=== PATIENT | male | born 1995 | race Caucasian/White ===

== ENCOUNTER 2019-12-21 15:44 | Inpatient (IN) | payer OTHER ==
[2019-12-21 18:40] VITALS: BMI 25.7
--- NOTE | 2019-12-21 20:18 | HP ---
COWS - Scale Resting Pulse: 1= [place] 81-100 Sweatin=Flushed/Facial Moisture (Increased facial moisture) Restless Observation: 0= Sits Still Pupil Size: 2= Moderately Dilated (Pupils = 4 mm) Bone or Joint Aches: 1= Mild Discomfort (Back pain - states r/t withdrawal) Runny Nose/ Eye Tearin= Nasal Congestion GI Upset > 30mins: 2= Nausea/Diarrhea (nausea only) Tremor Observation: 2= Slight Tremor Visible Yawning Observation: 1= 1-2x During Session Anxiety or Irritability: 1=Feels Anxious/Irritable Goose Flesh Skin: 0=Smooth Skin COWS Score: 13 CIWA Score - Admission Criteria OAS Guidelines: Admission for Medically Managed Detox: Requires at least one of the followin. CIWA greater than 12 2. Seizures within the past 24 hours 3. Delirium tremens within the past 24 hours 4. Hallucinations within the past 24 hours 5. Acute intervention needed for co occurring medical disorder 6. Acute intervention needed for co occurring psychiatric disorder 7. Severe withdrawal that cannot be handled at a lower level of care (continued vomiting, continued diarrhea, abnormal vital signs) requiring intravenous medication and/or fluids 8. Admitting History and Physical - Smoking History Smoking history: Current every day smoker Have you smoked in the past 12 months: Yes Aproximately how many cigarettes per day: 20 Admission ROS [facility] - [facility] Chief Complaint: "States here to detox from heroin so I can get my life back." Allergies/Adverse Reactions: Allergies Allergy/AdvReac Type Severity Reaction Status Date / Time Penicillins Allergy Verified 12/21/19 18:35 History of Present Illness: First [facility] admission for this 24 yo who presents with opioid withdrawal. Patient states has no prior detox attempts. JB: 0.0 UTox:+ MAITE/THC/FEN/MOP/MTD Hx 7 overdoses, Last 2 yrs ago. Denies seizures/blackouts Heroin/Opioid use began at age 19. Currently uses 10-15 bags/day/IV. Denies sharing needles or works. States last used yesterday @ 10 pm. Denies methadone program/use/ - but says did drink something yesterday. Does not have a Narcan kit @ home and encouraged. Cocaine/crack use began at age 19. Currently uses 1 bag/day. Smokes Marijuana use began at age 12. Currently uses 1x/wk. Nicotine use began at age 12. 1PPD Denies alcohol use. PMHx: Denies significant MHHx: Denies depression. Denies thoughts of harming self or others. SHx: Domiciled. Unemployed. Denies legal issues. Search Terms: Nas Carlos, 1995 Search Date: 12/21/2019 20:14:08 PM The Drug Utilization Report below displays all of the controlled substance prescriptions, if any, that your patient has filled in the last twelve months. The information displayed on this report is compiled from pharmacy submissions to the Department, and accurately reflects the information as submitted by the pharmacies. This report was requested by: Quita Mar | Reference #: [id number] There are no results for the search terms that you entered. Exam Limitations: No Limitations - Ebola screening Have you traveled outside of the country in the last 21 days: No (Denies known COVID exposure) Have you had contact with anyone from an Ebola affected area: No Have you been sick,other than usual withdrawal symptoms: No Do you have a fever: No - Review of Systems Constitutional: Chills, Diaphoresis, Changes in sleep (Difficulty falling asleep), Unintentional Wgt. Loss EENT: reports: Nose Congestion Respiratory: reports: No Symptoms reported Cardiac: reports: No Symptoms Reported GI: reports: Nausea, Abdominal cramping : reports: No Symptoms Reported Musculoskeletal: reports: Back Pain (r/t withdrawal) Integumentary: reports: No Symptoms Reported Neuro: reports: Headache (Achy headache "6". unrelated to injury), Tremors Endocrine: reports: No Symptoms Reported Hematology: reports: No Symptoms Reported Psychiatric: reports: Judgement Intact, Mood/Affect Appropiate, Anxious, other (Oriented x 2.) Patient History - Patient Medical History Hx Asthma: No Hx Chronic Obstructive Pulmonary Disease (COPD): No Hx Cardiac Disorders: No Hx Hypertension: No Hx Seizures: No Hx Diabetes: No Hx Gastrointestinal Disorders: No Hx Genitourinary Disorders: No Hx Sexually Transmitted Disorders: No Hx Renal Disease (ESRD): No Hx Depression: No Hx Suicide Attempt: No Hx Schizophrenia: No - Patient Surgical History Past Surgical History: No Hx Neurologic Surgery: No Hx Cataract Extraction: No Hx Cardiac Surgery: No Hx Lung Surgery: No Hx Breast Surgery: No Hx Breast Biopsy: No Hx Abdominal Surgery: No Hx Appendectomy: No Hx Cholecystectomy: No Hx Genitourinary Surgery: No Hx Section: No Hx Orthopedic Surgery: No Anesthesia Reaction: No - PPD History Previous Implant?: Yes Documented Results: Negative w/o proof Implanted On Prior [facility] Admission?: No PPD to be Administered?: Yes - Smoking Cessation Smoking history: Current every day smoker Have you smoked in the past 12 months: Yes Aproximately how many cigarettes per day: 20 Hx Chewing Tobacco Use: No Initiated information on smoking cessation: Yes 'Breaking Loose' booklet given: 12/21/19 - Substance & Tx. History Hx Alcohol Use: No Hx Substance Use: Yes Substance Use Type: Cocaine, Heroin, Marijuana, Opiates Hx Substance Use Treatment: No (Denies prior detox or rehab) - Substances abused Heroin Substance route: Injection Frequency: Daily Amount used: 15 bags Age of first use: 19 Date of last use: 12/20/19 Crack Substance route: Smoking Frequency: Daily Amount used: 1 bag Age of first use: 22 Date of last use: 12/20/19 Marijuana/Hashish Substance route: Smoking Frequency: Daily Amount used: 1 blunt Age of first use: 12 Date of last use: 12/20/19 Admission Physical Exam BHS - Vital Signs Vital Signs: Vital Signs - 24 hr 12/21/19 18:35 Temperature 97.6 F Pulse Rate 84 Respiratory 20 Rate Blood Pressure 117/66 - Physical General Appearance: Yes: Nourished, Mild Distress, Tremorous, Sweating (Increased facial moisture), Anxious HEENTM: Yes: EOMI, Hearing grossly Normal, Normocephalic, Normal Voice, SAVAGE (Pupils = 4 mm), Pharynx Normal Respiratory: Yes: Lungs Clear (Pulse ox = 99), Normal Breath Sounds, No Respiratory Distress Neck: Yes: No masses,lesions,Nodules, Supple Breast: Yes: Breast Exam Deferred Cardiology: Yes: Regular Rhythm, Regular Rate, S1, S2 Abdominal: Yes: Non Tender, Flat, Soft, Increased Bowel Sounds Genitourinary: Yes: Within Normal Limits Back: Yes: Normal Inspection Musculoskeletal: Yes: full range of Motion, Gait Steady Extremities: Yes: Normal Capillary Refill, Tremors (Mild tremors of hands) Neurological: Yes: kiln hand II-XII NML intact, Fully Oriented, Alert, Motor Strength 5/5, Normal Mood/Affect, Normal Response Integumentary: Yes: Normal Color, Warm, Moist (Increased facial moisture), Track Wilburn (Old and new antecubital track wilburn w/o increased warmth or erythema.), Other (Thickened, dry calloused skin on both small toes. (L) tender to touch.) Lymphatic: Yes: Within Normal Limits - Diagnostic (1) Opioid dependence with withdrawal Current Visit: Yes Status: Acute (2) Cocaine dependence Current Visit: Yes Status: Chronic Qualifiers: Substance use status: uncomplicated Qualified Code(s): F14.20 - Cocaine dependence, uncomplicated (3) Nicotine dependence, unspecified, uncomplicated Current Visit: Yes Status: Chronic Qualifiers: Nicotine product type: cigarettes Qualified Code(s): F17.210 - Nicotine dependence, cigarettes, uncomplicated (4) Cannabis abuse, uncomplicated Current Visit: Yes Status: Chronic (5) Intravenous drug abuse Current Visit: Yes Status: Chronic (6) Callus Current Visit: Yes Status: Chronic Cleared for Admission [facility] - Detox or Rehab [facility] Level of Care: Medically Managed Detox Regimen/Protocol: Methadone Claeared for Rehab Admission: No Breathalyzer - Breathalyzer Breathalyzer: 0 Urine Drug Screen - Test Device Lot number: [id number] Expiration date: 01/20/22 - Control Is test valid?: Yes - Results Drug screen NEGATIVE: No Urine drug screen results: THC-Marijuana, MAITE-Cocaine, FEN-Fentanyl, MOP- Opiates, MTD-Methadone Inpatient Rehab Admission - Rehab Decision to Admit Inpatient rehab admission?: No
[2019-12-21] MEDS ORDERED: METHADONE HCL 10 MG TABLET (FOR DETOX USE ONLY) PO ONE (21:54)
[2019-12-21] MEDS ORDERED: MENTHOL/PHENOL 1 EACH UD MM PRN (21:54)
[2019-12-21] MEDS ORDERED: hydrOXYzine PAMOATE 25 MG CAPSULE (FP) PO PRN (21:54)
[2019-12-21] MEDS ORDERED: ACETAMINOPHEN 325 MG TABLET (FP) PO PRN ×2 (21:54)
[2019-12-21] MEDS ORDERED: METHOCARBAMOL 500 MG TABLET PO PRN (21:54)
[2019-12-21] MEDS ORDERED: BISMUTH SUBSALICYLATE 524 MG/30 ML UD PO PRN (21:54)
[2019-12-21] MEDS ORDERED: MAGNESIUM CITRATE 300 ML BOTTLE PO PRN (21:54)
[2019-12-21] MEDS ORDERED: ONDANSETRON *ODT* 4 MG TABLET SL ONE (21:54)
[2019-12-21] MEDS ORDERED: MAG HYDROX/AL HYDROX/SIMETH 30 ML UNIT-DOSE CUP PO PRN (21:54)
[2019-12-21] MEDS ORDERED: cloNIDine HCL 0.1 MG TABLET PO PRN (21:54)
[2019-12-21] MEDS ORDERED: NICOTINE POLACRILEX 2 MG GUM BUC PRN (21:54)
[2019-12-21] MEDS ORDERED: MAGNESIUM HYDROX 2400MG/30ML ORAL SUSPENSION 30 ML CUP PO PRN (21:54)
[2019-12-21] MEDS: THIAMINE HCL 100 MG TABLET (FP) PO SCH (22:36)
[2019-12-21] MEDS: MELATONIN 5 MG TABLETS PO SCH (22:42)
[2019-12-22] MEDS ORDERED: METHADONE HCL 10 MG TABLET (FOR DETOX USE ONLY) ONE (09:20)
[2019-12-22] MEDS ORDERED: METHADONE HCL 5 MG TABLET (FOR DETOX USE ONLY) ONE (09:20)
[2019-12-22] MEDS ORDERED: METHADONE (DETOX) 20 MG, METHADONE (DETOX) 5 MG PO ONE (10:00)
[2019-12-22] MEDS: PRENATAL VITAMINS W/ FOLIC ACID TABLET (FP) PO SCH (10:26)
[2019-12-22] MEDS: NICOTINE 21 MG/24 HOURS TOPICAL PATCH TD SCH (10:26)
[2019-12-22 10:55] LABS: HEMATOCRIT 41.9 % (35.4-49); HEMOGLOBIN 13.8 GM/dL (11.7-16.9); MCH 28.6 pg (25.7-33.7); MEAN CELL VOLUME 86.8 fl (80-96); MEAN PLT VOLUME 8.1 fl (7.5-11.1); PLATELET COUNT 251 K/MM3 (134-434); RBC 4.83 M/mm3 (4.00-5.60); RDW 14.3 % (11.9-15.9); WHITE BLOOD COUNT 7.8 K/mm3 (4.0-10.0)
[2019-12-22 13:00] LABS: ALBUMIN 3.2 g/dl (3.4-5.0); BLOOD UREA NITROGEN 22.9 mg/dL (7-18); CALCIUM 8.6 mg/dL (8.5-10.1); POTASSIUM 4.4 mmol/L (3.5-5.1)
[2019-12-22 13:05] LABS: BILIRUBIN,TOTAL 0.2 mg/dL (0.2-1); CREATININE 0.9 mg/dL (0.55-1.3); TOT PROT 6.2 g/dl (6.4-8.2)
--- NOTE | 2019-12-22 16:25 | PN ---
BHS COWS - Scale Resting Pulse: 0= [place] 80 or Below Sweatin= Chills/Flushing Restless Observation: 1= Difficult to Sit Still Pupil Size: 0= Normal to Room Light Bone or Joint Aches: 0= None Runny Nose/ Eye Tearin= None GI Upset > 30mins: 2= Nausea/Diarrhea Tremor Observation of Outstretched Hands: 0= None Yawning Observation: 1= 1-2x During Session Anxiety or Irritability: 2=Irritable/Anxious Goose Flesh Skin: 3=Piloerection COWS Score: 10 BHS Progress Note (SOAP) Subjective: Restless, Anxious, Nausea, Sweating. Objective: Patient A & O X 3, Observed Ambulating on Detox Unit Unassisted. In No Acute Distress. 12/22/19 16:22 Vital Signs Temperature 96.6 F L 12/22/19 12:47 Pulse Rate 74 12/22/19 12:47 Respiratory Rate 17 12/22/19 12:47 Blood Pressure 123/60 12/22/19 12:47 O2 Sat by Pulse Oximetry (%) 95 12/22/19 12:47 Laboratory Tests 12/22/19 12/22/19 12/22/19 07:30 07:30 07:30 WBC 7.8 RBC 4.83 Hgb 13.8 Hct 41.9 MCV 86.8 MCH 28.6 MCHC 33.0 RDW 14.3 Plt Count 251 MPV 8.1 Sodium 138 Potassium 4.4 Chloride 108 H Carbon Dioxide 27 Anion Gap 4 L BUN 22.9 H Creatinine 0.9 Est GFR (CKD-EPI)AfAm 136.14 Est GFR (CKD-EPI)NonAf 117.46 Random Glucose 85 Calcium 8.6 Total Bilirubin 0.2 AST 12 L ALT 19 Alkaline Phosphatase 135 H Total Protein 6.2 L Albumin 3.2 L Syphilis Serology Non-reactive Lab Results noted. Assessment: 12/22/19 16:23 WITHDRAWAL SYMPTOMS. ELEVATED ALKALINE PHOSPHATASE LEVEL. 12/22/19 16:24 Plan: Continue Detox. Increase Daily Oral Water Intake.
[2019-12-22] MEDS: MELATONIN 5 MG TABLETS PO SCH (23:15)
[2019-12-22] MEDS: THIAMINE HCL 100 MG TABLET (FP) PO SCH (23:16)
[2019-12-23] MEDS: IBUPROFEN 400 MG TABLET (FP) PO PRN ×2 (05:55→14:38)
[2019-12-23] MEDS ORDERED: METHADONE HCL 10 MG TABLET (FOR DETOX USE ONLY) PO ONE (10:00)
[2019-12-23] MEDS: NICOTINE 21 MG/24 HOURS TOPICAL PATCH TD SCH (10:35)
[2019-12-23] MEDS: PRENATAL VITAMINS W/ FOLIC ACID TABLET (FP) PO SCH (10:35)
[2019-12-23] MEDS ORDERED: ONDANSETRON *ODT* 4 MG TABLET SL PRN (10:57)
--- NOTE | 2019-12-23 12:20 | PN ---
BHS COWS - Scale Resting Pulse: 0= [place] 80 or Below Sweatin= Chills/Flushing Restless Observation: 0= Sits Still Pupil Size: 0= Normal to Room Light Bone or Joint Aches: 2= Severe Diffuse Aches Runny Nose/ Eye Tearin= Nasal Congestion GI Upset > 30mins: 1= Stomach Cramp Tremor Observation of Outstretched Hands: 2= Slight Tremor Visible Yawning Observation: 0= None Anxiety or Irritability: 2=Irritable/Anxious Goose Flesh Skin: 0=Smooth Skin COWS Score: 9 BHS Progress Note (SOAP) Subjective: Nausea, nausea goes away after taking methadone Patient c/o toothache since admission and that motrin not helping Objective: 12/23/19 12:12 Last Vital Signs Temp Pulse Resp BP Pulse Ox 97.3 F L 77 17 129/70 97 12/23/19 08:55 12/23/19 08:55 12/23/19 08:55 12/23/19 08:55 12/23/19 08:55 Laboratory Tests 12/22/19 12/22/19 12/22/19 07:30 07:30 07:30 WBC 7.8 RBC 4.83 Hgb 13.8 Hct 41.9 MCV 86.8 MCH 28.6 MCHC 33.0 RDW 14.3 Plt Count 251 MPV 8.1 Sodium 138 Potassium 4.4 Chloride 108 H Carbon Dioxide 27 Anion Gap 4 L BUN 22.9 H Creatinine 0.9 Est GFR (CKD-EPI)AfAm 136.14 Est GFR (CKD-EPI)NonAf 117.46 Random Glucose 85 Calcium 8.6 Total Bilirubin 0.2 AST 12 L ALT 19 Alkaline Phosphatase 135 H Total Protein 6.2 L Albumin 3.2 L Syphilis Serology Non-reactive Labs reviewed: bun elevated, albumin/total protein low Assessment: 12/23/19 12:13 Withdrawal sxs Noted with azotemia, low total protein and albuminemia; c/o toothache since admission and that motrin not helping Plan: Continue detox Encourage PO water intake Nausea: zofran prn ordered Azotemia: encourage PO water hydration Low total protein and albuminemia: encourage diet Toothache: continue motrin/tylenol prn, start peridex rinse bid, start anbesol gel q6hr prn, follow up with your dentist post discharge
[2019-12-23] MEDS: CHLORHEXIDINE GLUCONATE 0.12% 15ML CUP MM SCH ×2 (12:48→22:06)
[2019-12-23] MEDS: BENZOCAINE 20 % GEL TUBE MM PRN (12:48)
[2019-12-23] MEDS: MELATONIN 5 MG TABLETS PO SCH (22:06)
[2019-12-23] MEDS: THIAMINE HCL 100 MG TABLET (FP) PO SCH (22:06)
[2019-12-24] MEDS ORDERED: METHADONE HCL 5 MG TABLET (FOR DETOX USE ONLY) ONE (09:11)
[2019-12-24] MEDS ORDERED: METHADONE HCL 10 MG TABLET (FOR DETOX USE ONLY) ONE (09:11)
[2019-12-24] MEDS ORDERED: METHADONE (DETOX) 10 MG, METHADONE (DETOX) 5 MG PO ONE (10:00)
--- NOTE | 2019-12-24 10:28 | EKG ---
Test Reason : Blood Pressure : / mmHG Vent. Rate : 080 BPM Atrial Rate : 080 BPM P-R Int : 152 ms QRS Dur : 088 ms QT Int : 418 ms P-R-T Axes : 064 073 066 degrees QTc Int : 482 ms NORMAL SINUS RHYTHM PROLONGED QT ABNORMAL ECG NO PREVIOUS ECGS AVAILABLE Confirmed by Nadia Price ([id number]) on 12/24/2019 10:27:41 AM Referred By: Confirmed By:Nadia Price
[2019-12-24] MEDS: PRENATAL VITAMINS W/ FOLIC ACID TABLET (FP) PO SCH (10:45)
[2019-12-24] MEDS: NICOTINE 21 MG/24 HOURS TOPICAL PATCH TD SCH (10:45)
[2019-12-24] MEDS: CHLORHEXIDINE GLUCONATE 0.12% 15ML CUP MM SCH ×2 (10:46→21:22)
[2019-12-24] MEDS: IBUPROFEN 400 MG TABLET (FP) PO PRN (10:47)
--- NOTE | 2019-12-24 10:57 | PN ---
S CIWA - CIWA Score Nausea/Vomitin Muscle Tremors: 2 Anxiety: 2 Agitation: 2 Paroxysmal Sweats: No Perspiration Orientation: 0-Oriented Tacttile Disturbances: 1-Very Mild Itch/Numbness Auditory Disturbances: 0-None Visual Disturbances: 0-None Headache: 1-Very Mild CIWA-Ar Total Score: 10 BHS COWS - Scale Resting Pulse: 0= [place] 80 or Below Sweatin= No chills or Flushing Restless Observation: 0= Sits Still Pupil Size: 1= Pupils >than Normal Bone or Joint Aches: 1= Mild Discomfort Runny Nose/ Eye Tearin= Nasal Congestion GI Upset > 30mins: 1= Stomach Cramp Tremor Observation of Outstretched Hands: 2= Slight Tremor Visible Yawning Observation: 0= None Anxiety or Irritability: 2=Irritable/Anxious Goose Flesh Skin: 0=Smooth Skin COWS Score: 8 BHS Progress Note (SOAP) Subjective: alert,irritable,anxious,interrupted sleep,pain in the body and back Objective: 12/24/19 10:58 Vital Signs Temperature 97.1 F L 12/24/19 08:46 Pulse Rate 79 12/24/19 08:46 Respiratory Rate 18 12/24/19 08:46 Blood Pressure 130/70 12/24/19 08:46 O2 Sat by Pulse Oximetry (%) 99 12/24/19 05:16 12/24/19 10:58 Laboratory Last Values WBC 7.8 K/mm3 (4.0-10.0) 12/22/19 07:30 RBC 4.83 M/mm3 (4.00-5.60) 12/22/19 07:30 Hgb 13.8 GM/dL (11.7-16.9) 12/22/19 07:30 Hct 41.9 % (35.4-49) 12/22/19 07:30 MCV 86.8 fl (80-96) 12/22/19 07:30 MCH 28.6 pg (25.7-33.7) 12/22/19 07:30 MCHC 33.0 g/dl (32.0-35.9) 12/22/19 07:30 RDW 14.3 % (11.9-15.9) 12/22/19 07:30 Plt Count 251 K/MM3 (134-434) 12/22/19 07:30 MPV 8.1 fl (7.5-11.1) 12/22/19 07:30 Sodium 138 mmol/L (136-145) 12/22/19 07:30 Potassium 4.4 mmol/L (3.5-5.1) 12/22/19 07:30 Chloride 108 mmol/L (98-107) H 12/22/19 07:30 Carbon Dioxide 27 mmol/L (21-32) 12/22/19 07:30 Anion Gap 4 MMOL/L (8-16) L 12/22/19 07:30 BUN 22.9 mg/dL (7-18) H 12/22/19 07:30 Creatinine 0.9 mg/dL (0.55-1.3) 12/22/19 07:30 Est GFR (CKD-EPI)AfAm 136.14 12/22/19 07:30 Est GFR (CKD-EPI)NonAf 117.46 12/22/19 07:30 Random Glucose 85 mg/dL (74-106) 12/22/19 07:30 Calcium 8.6 mg/dL (8.5-10.1) 12/22/19 07:30 Total Bilirubin 0.2 mg/dL (0.2-1) 12/22/19 07:30 AST 12 U/L (15-37) L 12/22/19 07:30 ALT 19 U/L (13-61) 12/22/19 07:30 Alkaline Phosphatase 135 U/L (45-117) H 12/22/19 07:30 Total Protein 6.2 g/dl (6.4-8.2) L 12/22/19 07:30 Albumin 3.2 g/dl (3.4-5.0) L 12/22/19 07:30 Syphilis Serology Non-reactive (NONREACTIVE) 12/22/19 07:30 COVID-19 (ROSY) Not detected (Not Detected) 12/22/19 09:50 Assessment: 12/24/19 10:59 withdrawal symptom Plan: continue detox methadone and librium regimen,encourage oral fluid
[2019-12-24] MEDS: THIAMINE HCL 100 MG TABLET (FP) PO SCH (21:22)
[2019-12-24] MEDS: MELATONIN 5 MG TABLETS PO SCH (21:23)
[2019-12-25] MEDS ORDERED: METHADONE HCL 10 MG TABLET (FOR DETOX USE ONLY) PO ONE (10:00)
--- NOTE | 2019-12-25 10:42 | PN ---
[facility] CIWA - CIWA Score Nausea/Vomitin-No Nausea/No Vomiting Muscle Tremors: 1-None Visible, but Ramona Anxiety: 1-Mildly Anxious Agitation: 1-Slight > Activity Paroxysmal Sweats: No Perspiration Orientation: 0-Oriented Tacttile Disturbances: 1-Very Mild Itch/Numbness Auditory Disturbances: 0-None Visual Disturbances: 0-None Headache: 1-Very Mild CIWA-Ar Total Score: 5 BHS COWS - Scale Resting Pulse: 1= [place] 81-100 Sweatin= No chills or Flushing Restless Observation: 0= Sits Still Pupil Size: 0= Normal to Room Light Bone or Joint Aches: 1= Mild Discomfort Runny Nose/ Eye Tearin= Nasal Congestion GI Upset > 30mins: 1= Stomach Cramp Tremor Observation of Outstretched Hands: 1= Tremor Ramona, Not Seen Yawning Observation: 0= None Anxiety or Irritability: 1=Feels Anxious/Irritable Goose Flesh Skin: 0=Smooth Skin COWS Score: 6 S Progress Note (SOAP) Subjective: alert,irritable,anxious,interrupted sleep,aching pain in back Objective: 12/25/19 10:41 Vital Signs Temperature 97.3 F L 12/25/19 08:33 Pulse Rate 89 12/25/19 08:33 Respiratory Rate 18 12/25/19 08:33 Blood Pressure 130/69 12/25/19 08:33 O2 Sat by Pulse Oximetry (%) 99 12/25/19 05:20 Assessment: 12/25/19 10:41 withdrawal symptom Plan: continue detox methadone and librium regimen,discharge in am
[2019-12-25] MEDS: PRENATAL VITAMINS W/ FOLIC ACID TABLET (FP) PO SCH (10:53)
[2019-12-25] MEDS: NICOTINE 21 MG/24 HOURS TOPICAL PATCH TD SCH (10:53)
[2019-12-25] MEDS: CHLORHEXIDINE GLUCONATE 0.12% 15ML CUP MM SCH ×2 (10:54→22:15)
[2019-12-25] MEDS: BENZOCAINE 20 % GEL TUBE MM PRN (10:54)
[2019-12-25] MEDS: IBUPROFEN 400 MG TABLET (FP) PO PRN ×2 (10:56→17:37)
[2019-12-25] MEDS: MELATONIN 5 MG TABLETS PO SCH (22:15)
[2019-12-25] MEDS: THIAMINE HCL 100 MG TABLET (FP) PO SCH (22:16)
[2019-12-26] MEDS: IBUPROFEN 400 MG TABLET (FP) PO PRN (05:45)
[2019-12-26] MEDS ORDERED: METHADONE HCL 5 MG TABLET (FOR DETOX USE ONLY) PO ONE (06:00)
[2019-12-26 06:12] VITALS: BP 125/68; PULSE 61; TEMP 97.3
--- NOTE | 2019-12-26 13:11 | PN ---
[facility] CIWA - CIWA Score Nausea/Vomitin-No Nausea/No Vomiting Muscle Tremors: None Anxiety: 1-Mildly Anxious Agitation: 0-Normal Activity Paroxysmal Sweats: No Perspiration Orientation: 0-Oriented Tacttile Disturbances: 0-None Auditory Disturbances: 0-None Visual Disturbances: 0-None Headache: 0-None Present CIWA-Ar Total Score: 1 [facility] COWS - Scale Resting Pulse: 0= [place] 80 or Below Sweatin= No chills or Flushing Restless Observation: 0= Sits Still Pupil Size: 0= Normal to Room Light Bone or Joint Aches: 0= None Runny Nose/ Eye Tearin= None GI Upset > 30mins: 0= None Tremor Observation of Outstretched Hands: 0= None Yawning Observation: 0= None Anxiety or Irritability: 1=Feels Anxious/Irritable Goose Flesh Skin: 0=Smooth Skin COWS Score: 1 [facility] Progress Note (SOAP) Subjective: alert,no complaint Objective: 12/26/19 13:10 Vital Signs Temperature 97.3 F L 12/26/19 05:26 Pulse Rate 61 12/26/19 05:26 Respiratory Rate 20 12/26/19 05:26 Blood Pressure 125/68 12/26/19 05:26 O2 Sat by Pulse Oximetry (%) 100 12/26/19 05:26 Assessment: 12/26/19 13:10 detox completed,no withdrawal symptom Plan: stable for discharge today,follow up with after care program as arrangement
--- NOTE | 2019-12-26 13:15 | DS ---
[facility] Detox Discharge Summary Admission Date: 12/21/19 Discharge Date: 12/26/19 - History Present History: Alcohol Dependence, Cannabis Dependence, Cocaine Dependence, Opioid Dependence Additional Comments: alert,oriented x 3 ambulation on the unit lung clear on auscultation bilaterally abdomen soft,no distension,no pain ,no tenderness extremity no swelling detox completed,no withdrawal symptom stable for discharge patient declined rehab will follow up with out patient program as arrangement total time spending on discharge 35 minutes Pertinent Past History: ivdu nicotine dependence - Physical Exam Results Vital Signs: Vital Signs Temperature 97.3 F L 12/26/19 05:26 Pulse Rate 61 12/26/19 05:26 Respiratory Rate 20 12/26/19 05:26 Blood Pressure 125/68 12/26/19 05:26 O2 Sat by Pulse Oximetry (%) 100 12/26/19 05:26 Pertinent Admission Physical Exam Findings: withdrawal signs and symptom Laboratory Last Values WBC 7.8 K/mm3 (4.0-10.0) 12/22/19 07:30 RBC 4.83 M/mm3 (4.00-5.60) 12/22/19 07:30 Hgb 13.8 GM/dL (11.7-16.9) 12/22/19 07:30 Hct 41.9 % (35.4-49) 12/22/19 07:30 MCV 86.8 fl (80-96) 12/22/19 07:30 MCH 28.6 pg (25.7-33.7) 12/22/19 07:30 MCHC 33.0 g/dl (32.0-35.9) 12/22/19 07:30 RDW 14.3 % (11.9-15.9) 12/22/19 07:30 Plt Count 251 K/MM3 (134-434) 12/22/19 07:30 MPV 8.1 fl (7.5-11.1) 12/22/19 07:30 Sodium 138 mmol/L (136-145) 12/22/19 07:30 Potassium 4.4 mmol/L (3.5-5.1) 12/22/19 07:30 Chloride 108 mmol/L (98-107) H 12/22/19 07:30 Carbon Dioxide 27 mmol/L (21-32) 12/22/19 07:30 Anion Gap 4 MMOL/L (8-16) L 12/22/19 07:30 BUN 22.9 mg/dL (7-18) H 12/22/19 07:30 Creatinine 0.9 mg/dL (0.55-1.3) 12/22/19 07:30 Est GFR (CKD-EPI)AfAm 136.14 12/22/19 07:30 Est GFR (CKD-EPI)NonAf 117.46 12/22/19 07:30 Random Glucose 85 mg/dL (74-106) 12/22/19 07:30 Calcium 8.6 mg/dL (8.5-10.1) 12/22/19 07:30 Total Bilirubin 0.2 mg/dL (0.2-1) 12/22/19 07:30 AST 12 U/L (15-37) L 12/22/19 07:30 ALT 19 U/L (13-61) 12/22/19 07:30 Alkaline Phosphatase 135 U/L (45-117) H 12/22/19 07:30 Total Protein 6.2 g/dl (6.4-8.2) L 12/22/19 07:30 Albumin 3.2 g/dl (3.4-5.0) L 12/22/19 07:30 Syphilis Serology Non-reactive (NONREACTIVE) 12/22/19 07:30 COVID-19 (ROSY) Not detected (Not Detected) 12/22/19 09:50 Vital Signs Temperature 97.3 F L 12/26/19 05:26 Pulse Rate 61 12/26/19 05:26 Respiratory Rate 20 12/26/19 05:26 Blood Pressure 125/68 12/26/19 05:26 O2 Sat by Pulse Oximetry (%) 100 12/26/19 05:26 - Treatment Hospital Course: Detox Protocol Followed, Detoxed Safely, Responded well, Discharged Condition Good Patient has Accepted a Rehab Referral to: declined - Medication Discharge Medications: Ambulatory Orders NK [No Known Home Medication] 12/21/19 - Diagnosis (1) Opioid dependence with withdrawal Status: Acute (2) Cannabis abuse, uncomplicated Status: Chronic (3) Cocaine dependence Status: Chronic Qualifiers: Substance use status: uncomplicated Qualified Code(s): F14.20 - Cocaine dependence, uncomplicated (4) Intravenous drug abuse Status: Chronic - AMA Did Patient Leave Against Medical Advice: No
== END 2019-12-26 09:40 | disposition home or self-care (01) | DRG 773 ==
LOC: YASAS 15:44 → Y6N 20:20
PROVIDERS: ADMIT Allergy & Immunology; ATTEND Allergy & Immunology
PROC: HZ2ZZZZ Detoxification Services for Substance Abuse Treatment (ICD-10-PCS; principal; 2019-12-21)
DX: F11.23 Opioid dependence with withdrawal (principal); F14.20 Cocaine dependence, uncomplicated; F12.20 Cannabis dependence, uncomplicated; F17.210 Nicotine dependence, cigarettes, uncomplicated; R79.89 Other specified abnormal findings of blood chemistry; R77.0 Abnormality of albumin; R74.0 Nonspecific elevation of levels of transaminase and lactic acid dehydrogenase [LDH]; D53.0 Protein deficiency anemia; K08.89 Other specified disorders of teeth and supporting structures; L84 Corns and callosities; Z88.0 Allergy status to penicillin; Z56.0 Unemployment, unspecified
CPT/HCPCS: 36415; 80053; 85027; 86780; 93005; 93010; U0003